=== PATIENT | male | born 1950 ===

== ENCOUNTER 2017-07-14 12:34 | Inpatient (IN) | payer MEDICAID, OTHER ==
[2017-07-14 12:41] VITALS: O2SAT 96
--- NOTE | 2017-07-14 12:58 | ED PDOC ---
Psych Transfer Clearance - Clearance Statement Clearance Statement: Reviewed vital signs, lab results and transfer papers. Patient clinically stable for psychiatric admission.
[2017-07-14] MEDS ORDERED: Bismuth Subsalicylate 262 mg/15 ml Sus (240 ml) PO PRN (13:32)
[2017-07-14] MEDS ORDERED: Magnesium Hydroxide Susp 30 ml UD PO PRN (13:32)
--- NOTE | 2017-07-14 14:02 | PCM.PSYCH ---
Initial Psychiatric Evaluation - Initial Psychiatric Evaluation Type of Admission: Voluntary Legal Status: Capacity Chief Complaint (in patient's own words): HPI: 67 yo male, transferred from [facility] at [place], where he presented after suicide attempt by cutting his R thumb (as per records). Patient reports that he continues to feel depressed. He denies acute SI/plan/intent and is able to contract for safety. He denies acute AH/VH/paranoia/delusions. He does report that he experienced auditory hallucinations several weeks ago. + Anxiety. +Sleep/appetite disturbances. PPHx: Patient denies past psychiatric history, but as per chart he has taken Zoloft in the past and also had an admission to [facility] in the past. He does not want to take Zoloft again because he reports that he had headaches from the medication. PMHx: Denies acute/ chronic medical conditions. ALL: NKDA SHx: Denies drugs/etoh/cig; homeless, from , has 1 daughter (39 yrs old) Current Medications: Active Medications Generic Name Dose Route Start Last Admin Trade Name Freq PRN Reason Stop Dose Admin Acetaminophen 650 mg 07/14/17 13:32 Tylenol 325mg Tab PO Q4 PRN Pain, moderate (4-7) Bismuth Subsalicylate 524 mg 07/14/17 13:32 Pepto-Bismol PO Q4 PRN Diarrhea Escitalopram Oxalate 10 mg 07/14/17 14:00 Lexapro PO DAILY TAMI Lorazepam 0.5 mg 07/14/17 13:32 Ativan PO 07/28/17 13:33 Q6 PRN Anixety/Agitation Lorazepam 1 mg 07/14/17 13:34 Ativan IM Q6 PRN Agitation Magnesium Hydroxide 30 ml 07/14/17 13:32 Milk Of Magnesia PO HS PRN Constipation Past Psychiatric History - Past Psychiatric History Previous Treatment History: Inpatient Pertinent Medical Hx (Current Medical&Sleep Prob, Allergies): Allergies Allergy/AdvReac Type Severity Reaction Status Date / Time No Known Allergies Allergy Verified 07/14/17 12:52 Review of Systems - Psychiatric Psychiatric: As Per HPI, Abnormal Sleep Pattern, Anxiety, Change in Appetite, Depression, Difficulty Concentrating, Irritability, Mood Swings, Suicidal Ideation Mental Status Examination - Personal Presentation Personal Presentation: Looks stated age - Affect Affect: Constricted, Depressed - Motor Activity Motor Activity: Calm - Reliability in Providing Information Reliability in Providing Information: Other (Poor, possibly intentionally not giving information) - Speech Speech: Organized - Mood Mood: Depressed - Formal Thought Process Formal Thought Process: No Impairment - Hallucinations/Delusions Additional comments: No AH/VH/paranoia/delusions - Obsessions/Compulsions Obsessions: No Compulsions: No - Cognitive Functions Orientation: Person, Place, Situation, Time Sensorium: Alert Attention/Concentration: Attentive Estimate of Intelligence: Average Judgement: Intact, as evidence by: Insight regarding need for hospitalization Memory: Recent intact, as evidence by: Ability to recall events of the day - Risk Risk: Suicidal, Diminished functioning - Strength & Assets Inventory Strength & Assets Inventory: Cooperative (Poverty, Homelessness) DSM 5 DX - DSM 5 DSM 5 Diagnosis: Major Depressive Disorder - Recommended/Plan of Treatment Treatment Recommendations and Plan of Treatment: Major Depressive Disorder -Admit to psychiatric unit -Individual and group therapy -Medicine consult -Psychoeducation -Start Lexapro 10 mg PO Daily -Disposition planning -No 1:1 indicated as the patient can contract for safety Projected ELOS: 5-8 days Discharge Plan and Discharge Criteria: Discharge when patient is psychiatrically stable - Smoking Cessation Smoking Cessation Initiated: No Reason for not providing: Not indicated
--- NOTE | 2017-07-14 15:10 | PCM.BM ---
<Marcia Nichols - Last Filed: 07/14/17 15:19> Treatment Plan Problems - Problems identified on initial assessmt Problem 1 Date Initiated: 07/14/17 Time Initiated: 15:18 Assessment reference: NA Status: Active Hopelessness/Hopelessness Date Initiated: 07/14/17 Time Initiated: 15:19 Assessment reference: NA Status: Active Treatment assets and liabiliti Patient Assests: cooperative, educated, ADL independent, negotiates basic needs , cognitively intact Patient Liabilities: live alone, financial problems - Milieu Protocol Maintain good personal hygiene: daily Encourage regular showers, daily Assist patient to perform ADL's, every shift Remind patient to perform daily oral care Conduct patient checks and document Observation sheet: Q15 minutes Maintain personal safety: every shift Educate patient to report safety concerns to staff, every shift Monitor environment for contraband/sharps Medication safety: Monitor for expected outcome, potential side effects: every shift, Assess barriers to learning: every shift, Assess readiness for medication education: every shift Milieu Narrative: Major Depressive Disorder -Admit to psychiatric unit -Individual and group therapy -Medicine consult -Psychoeducation -Start Lexapro 10 mg PO Daily -Disposition planning -No 1:1 indicated as the patient can contract for safety Discharge/Continuing Care - Treatment Team Participation Patient/Family/SO Statement: Major Depressive Disorder -Admit to psychiatric unit -Individual and group therapy -Medicine consult -Psychoeducation -Start Lexapro 10 mg PO Daily -Disposition planning -No 1:1 indicated as the patient can contract for safety <Geeta Lutz - Last Filed: 07/15/17 08:58> - Diagnosis (1) Major depressive disorder Status: Acute Interventions: Medication management, Individual and group therapy, Psychoeducation 07/15/17 08:58 <Ervin Spangler - Last Filed: 07/15/17 16:16> Family Contact Family involvement: Famliy/SO not involved Family contact: Patient agrees to contact, Family has been contacted by patient - Goals for Treatment Patient goals for treatment: Pt reported he would like to obtain housing, and could not identify other goals. Discharge/Continuing Care - Education Needs Education Needs: Patient Medication, Patient Diagnosis/Disease Process, Patient Coping Skills, Patient Placement options, Patient Community resources, Patient Aftercare Safety Plan - Discharge Discharge Criteria: Tolerates medication w/o severe side effects, Free of Suicidal thoughts, Ability to care for self, Reduction of target symptoms Discharge to:: Long Term - Treatment Team Participation Discussed with Family/SO: No <Hillary Gentile - Last Filed: 07/16/17 15:54> Discharge/Continuing Care - Additional Comments 07/16/17 15:49 Pt seen and discussed in team meeting. Reason for admission reviewed and discussed. Pt's progress and bx on the unit reviewed. Pt reported feeling " a little tired." Pt reported poor night sleep due to "worrying about things." Pt reported he is homeless and has been thinking about he will be be staying post discharge. Pt reported feeling restless and command auditory hallucinations telling him to "hurt myself." Pt reported voice is unknown to him. Pt's social and medical issues reviewed. Pt reported he has been in contact with [facility] [employer] [facility] [employer] and they are in te process of getting him a bed at a alf or a emergency motel voucher. Tx plan reviewed and discussed; pt agreeable. SW to continue to follow case. - Treatment Team Participation Was Patient/Family/SO present at Treatment Team Meeting: Yes
--- NOTE | 2017-07-14 19:19 | CP.PCM.CON ---
History of Present Illness - History of Present Illness History of Present Illness: 67 yo male admitted to [facility] because of depression and suicidal ideation. Review of Systems - Review of Systems All systems: reviewed and no additional remarkable complaints except (aside from those mentioned above, 12 point system review were negative by me) Past Patient History - Past Social History Smoking Status: Never Smoked Alcohol: None Drugs: Denies - CARDIAC Hx Cardiac Disorders: No - PULMONARY Hx Respiratory Disorders: No - NEUROLOGICAL Hx Neurological Disorder: No - HEENT Hx HEENT Problems: No - RENAL Hx Chronic Kidney Disease: No - ENDOCRINE/METABOLIC Hx Endocrine Disorders: No - HEMATOLOGICAL/ONCOLOGICAL Hx Blood Disorders: No - INTEGUMENTARY Hx Dermatological Problems: No - MUSCULOSKELETAL/RHEUMATOLOGICAL Hx Musculoskeletal Disorders: No Hx Falls: No - GASTROINTESTINAL Hx Gastrointestinal Disorders: No - GENITOURINARY/GYNECOLOGICAL Hx Genitourinary Disorders: Yes Hx Prostate Problems: Yes Hx Urinary Tract Infection: Yes - PSYCHIATRIC Hx Anxiety: Yes Hx Depression: Yes Hx Substance Use: No - SURGICAL HISTORY Hx Surgeries: No - ANESTHESIA Hx Anesthesia: No Hx Anesthesia Reactions: No Hx Malignant Hyperthermia: No Has any member of the family had a problem w/ anesthesia?: No Meds Allergies/Adverse Reactions: Allergies Allergy/AdvReac Type Severity Reaction Status Date / Time No Known Allergies Allergy Verified 07/14/17 12:52 - Medications Medications: Current Medications Acetaminophen (Tylenol 325mg Tab) 650 mg PO Q4 PRN PRN Reason: Pain, moderate (4-7) Bismuth Subsalicylate (Pepto-Bismol) 524 mg PO Q4 PRN PRN Reason: Diarrhea Escitalopram Oxalate (Lexapro) 10 mg PO DAILY TAMI Last Admin: 07/14/17 17:00 Dose: 10 mg Lorazepam (Ativan) 0.5 mg PO Q6 PRN PRN Reason: Anixety/Agitation Stop: 07/28/17 13:33 Lorazepam (Ativan) 1 mg IM Q6 PRN PRN Reason: Agitation Magnesium Hydroxide (Milk Of Magnesia) 30 ml PO HS PRN PRN Reason: Constipation Physical Exam - Constitutional Appears: No Acute Distress - Head Exam Head Exam: ATRAUMATIC - Eye Exam Eye Exam: absent: Scleral icterus - ENT Exam ENT Exam: Mucous Membranes Moist - Neck Exam Neck exam: Negative for: Meningismus - Respiratory Exam Respiratory Exam: absent: Rhonchi, Wheezes, Respiratory Distress - Cardiovascular Exam Cardiovascular Exam: REGULAR RHYTHM, +S1, +S2 - GI/Abdominal Exam GI & Abdominal Exam: Soft. absent: Tenderness - Rectal Exam Rectal Exam: Deferred - Extremities Exam Extremities exam: Negative for: pedal edema - Back Exam Back exam: NORMAL INSPECTION - Neurological Exam Neurological exam: Alert, Oriented x3 - Psychiatric Exam Psychiatric exam: Normal Affect - Skin Skin Exam: Dry, Intact Results - Vital Signs Recent Vital Signs: Last Vital Signs Temp 97.2 F L 07/14/17 15:42 Pulse 67 07/14/17 15:42 Resp 19 07/14/17 15:42 BP 106/68 07/14/17 15:42 Pulse Ox 96 07/14/17 12:40 Assessment & Plan (1) Suicidal ideation Status: Acute Comment: psyche is managing (2) Depression Status: Acute Comment: psyche is managing
[2017-07-15 06:47] LABS: HEMOGLOBIN 14.2 g/dL (12.0-18.0); MEAN CELL VOLUME 95.9 fl (80.0-94.0); MEAN CORPUSCULAR HEMOGLOBIN 32.4 pg (27.0-31.0); MEAN CORPUSCULAR HGB CONC 33.8 g/dL (33.0-37.0); RBC 4.4 Mil/uL (4.40-5.90); RED CELL DISTRIBUTION WIDTH 13.7 % (11.5-14.5); WHITE BLOOD COUNT 6.3 K/uL (4.8-10.8)
[2017-07-15 06:50] LABS: ALBUMIN 3.5 g/dL (3.5-5.0); ALT/SGPT 51 U/L (21-72); AST/SGOT 24 U/L (17-59); BLOOD UREA NITROGEN 19 mg/dl (9-20); CALCIUM 9.4 mg/dL (8.4-10.2); GFR AFRICAN-AMERICAN > 60; GFR NON-AFRICAN AMERICAN > 60; HDL CHOLESTEROL 32 MG/DL (30-70)
[2017-07-15 07:03] LABS: LDL CHOLESTEROL 117 mg/dL (0-129)
[2017-07-15 07:09] LABS: T4 4.57 ug/dl (5.5-11.0)
--- NOTE | 2017-07-15 09:37 | PCM.PYCHPN ---
Psychiatric Progress Note - Psychiatric Progress Note Patient seen today, length of contact: Patient evaluated, case discussed with team, chart reviewed Patient Chief Complaint: "I'm depressed." Problems Identified/Issues Discussed: Patient continues to report feeling depressed w/ poor sleep. He reports that his appetite is improving. He denies acute ideation to harm self. NO AH/VH/ paranoia/delusions. No adverse effects to Lexapro reported. Medication Change: No Medical Record Reviewed: Yes Consults ordered or reviewed: Medicine consult Mental Status Examination - Cognitive Function Orientation: Person, Place, Situation, Time Memory: Intact Attention: WNL Concentration: WNL Association: WNL Fund of Knowledge: WN - Mood Mood: Depressed - Affect Affect: Constricted, Depressed - Speech Speech: Appropriate - Formal Thought Process Formal Thought Process: No Impairment Psychotic Thoughts and Behaviors: No AH/VH/paranoia/delusions - Suicidal Ideation Suicidal Ideation: No - Homicidal Ideation Homicidal Ideation: No Goal/Treatment Plan - Goal/Treatment Plan Need for Continued Stay: Remain at risks for inpatient hospitalization, Severe depression anxiety, Discharge may exacerbated symptoms Progress Toward Problem(s) and Goals/Treatment Plan: Major Depressive Disorder -Individual and group therapy -Medicine consult -Psychoeducation -Continue Lexapro 10 mg PO Daily -Disposition planning Estimated Date of D/C: 07/18/17
[2017-07-15 12:55] LABS: FOLATE 15.1 ng/mL
--- NOTE | 2017-07-16 09:24 | PCM.PYCHPN ---
Psychiatric Progress Note - Psychiatric Progress Note Patient seen today, length of contact: Patient evaluated, case discussed with team, chart reviewed Patient Chief Complaint: "I'm depressed." Problems Identified/Issues Discussed: Patient continues to report feeling depressed and anxious. He reports that his appetite and appetite are improving. He denies acute ideation to harm self. No AH/VH/paranoia/delusions. No adverse effects to Lexapro reported. Medication Change: No Medical Record Reviewed: Yes Consults ordered or reviewed: Medicine consult Mental Status Examination - Cognitive Function Orientation: Person, Place, Situation, Time Memory: Intact Attention: WNL Concentration: WNL Association: WNL Fund of Knowledge: WNL - Mood Mood: Depressed - Affect Affect: Constricted - Speech Speech: Appropriate - Formal Thought Process Formal Thought Process: No Impairment Psychotic Thoughts and Behaviors: No AH/VH/paranoia/delusions - Suicidal Ideation Suicidal Ideation: No - Homicidal Ideation Homicidal Ideation: No Goal/Treatment Plan - Goal/Treatment Plan Need for Continued Stay: Severe depression anxiety, Discharge may exacerbated symptoms Progress Toward Problem(s) and Goals/Treatment Plan: Major Depressive Disorder -Individual and group therapy -Medicine consult -Psychoeducation -Continue Lexapro 10 mg PO Daily -Disposition planning Estimated Date of D/C: 07/18/17
--- NOTE | 2017-07-17 08:43 | PCM.PYCHPN ---
Psychiatric Progress Note - Psychiatric Progress Note Patient seen today, length of contact: Patient evaluated, case discussed with team, chart reviewed Patient Chief Complaint: "I'm depressed." Problems Identified/Issues Discussed: Patient continues to report feeling depressed and anxious. He denies acute auditory hallucinations. He reports poor sleep last night. He denies acute ideation to harm self. No VH/paranoia/delusions. No adverse effects to Lexapro or Risperdal reported. Medication Change: No Medical Record Reviewed: Yes Consults ordered or reviewed: Medicine consult Mental Status Examination - Cognitive Function Orientation: Person, Place, Situation, Time Memory: Intact Attention: WNL Concentration: WNL Association: WNL Fund of Knowledge: [facility] Decription of patient's judgement and insights: Fair I/J - Mood Mood: Depressed - Affect Affect: Constricted - Speech Speech: Appropriate - Formal Thought Process Formal Thought Process: No Impairment Psychotic Thoughts and Behaviors: No AH/VH/paranoia/delusions - Suicidal Ideation Suicidal Ideation: No - Homicidal Ideation Homicidal Ideation: No Goal/Treatment Plan - Goal/Treatment Plan Need for Continued Stay: Severe depression anxiety, Discharge may exacerbated symptoms Progress Toward Problem(s) and Goals/Treatment Plan: Major Depressive Disorder w/ Psychotic Features -Individual and group therapy -Medicine consult -Psychoeducation -Continue Lexapro 10 mg PO Daily -Continue Risperdal 0.5 mg PO HS -Disposition planning Estimated Date of D/C: 07/21/17
--- NOTE | 2017-07-18 08:46 | PCM.PYCHPN ---
Psychiatric Progress Note - Psychiatric Progress Note Patient seen today, length of contact: Patient evaluated, case discussed with team, chart reviewed Patient Chief Complaint: "I'm depressed." Problems Identified/Issues Discussed: Patient reports that he does not want to take the Risperdal because it made him feel dizzy. He denies any current AH/VH/paranoia/delusions. Patient informed to tell staff if he experience AH in the future. He continues to report depressed mood, but denies suicidal ideation/plan/intent. No adverse effects to Lexapro reported. Medication Change: Yes (Stop Risperdal) Medical Record Reviewed: Yes Consults ordered or reviewed: Medicine consult Mental Status Examination - Cognitive Function Orientation: Person, Place, Situation, Time Memory: Intact Attention: WNL Concentration: WNL Association: WNL Fund of Knowledge: [facility] Decription of patient's judgement and insights: Fair I/J - Mood Mood: Depressed - Affect Affect: Constricted - Speech Speech: Appropriate - Formal Thought Process Formal Thought Process: No Impairment Psychotic Thoughts and Behaviors: No AH/VH/paranoia/delusions - Suicidal Ideation Suicidal Ideation: No - Homicidal Ideation Homicidal Ideation: No Goal/Treatment Plan - Goal/Treatment Plan Need for Continued Stay: Severe depression anxiety, Discharge may exacerbated symptoms Progress Toward Problem(s) and Goals/Treatment Plan: Major Depressive Disorder w/ Psychotic Features -Individual and group therapy -Medicine consult -Psychoeducation -Continue Lexapro 10 mg PO Daily -Step Risperdal 0.5 mg PO HS as per patient request -Disposition planning Estimated Date of D/C: 07/21/17
--- NOTE | 2017-07-19 08:37 | PCM.PYCHPN ---
Psychiatric Progress Note - Psychiatric Progress Note Patient seen today, length of contact: Patient evaluated, case discussed with team, chart reviewed Patient Chief Complaint: "I'm depressed." Problems Identified/Issues Discussed: Patient continues to report depressed mood, but denies suicidal ideation/plan/ intent and hallucinations. He reports improved appetite, but he continues ot have difficultly sleeping at night. No adverse effects to Lexapro reported. Medication Change: No Medical Record Reviewed: Yes Consults ordered or reviewed: Medicine consult Mental Status Examination - Cognitive Function Orientation: Person, Place, Situation, Time Memory: Intact Attention: WNL Concentration: WNL Association: [facility] Fund of Knowledge: [facility] Decription of patient's judgement and insights: Fair I/J - Mood Mood: Depressed - Affect Affect: Constricted - Speech Speech: Appropriate - Formal Thought Process Formal Thought Process: No Impairment Psychotic Thoughts and Behaviors: No AH/VH/paranoia/delusions - Suicidal Ideation Suicidal Ideation: No - Homicidal Ideation Homicidal Ideation: No Goal/Treatment Plan - Goal/Treatment Plan Need for Continued Stay: Severe depression anxiety, Discharge may exacerbated symptoms Progress Toward Problem(s) and Goals/Treatment Plan: Major Depressive Disorder w/ Psychotic Features -Individual and group therapy -Medicine consult -Psychoeducation -Continue Lexapro 10 mg PO Daily -Disposition planning Estimated Date of D/C: 07/21/17
[2017-07-20 06:10] VITALS: RESP 18
--- NOTE | 2017-07-20 11:17 | PCM.PYCHPN ---
Psychiatric Progress Note - Psychiatric Progress Note Patient seen today, length of contact: Patient evaluated, case discussed with team, chart reviewed Patient Chief Complaint: "I'm okay." Problems Identified/Issues Discussed: Patient reports that his mood is improving. He has improved sleep and appetite. No AH/VH/SI/HI/paranoia/delusions. +Improved sleep/appetite. We discussed likely discharge tomorrow. No adverse effects to Lexapro reported. Medication Change: No Medical Record Reviewed: Yes Consults ordered or reviewed: Medicine consult Mental Status Examination - Cognitive Function Orientation: Person, Place, Situation, Time Memory: Intact Attention: WNL Concentration: WNL Association: WN Fund of Knowledge: [facility] Decription of patient's judgement and insights: Fair I/J - Mood Mood: Neutral - Affect Affect: Broad - Speech Speech: Appropriate - Formal Thought Process Formal Thought Process: No Impairment Psychotic Thoughts and Behaviors: No AH/VH/paranoia/delusions - Suicidal Ideation Suicidal Ideation: No - Homicidal Ideation Homicidal Ideation: No Goal/Treatment Plan - Goal/Treatment Plan Need for Continued Stay: Discharge may exacerbated symptoms Progress Toward Problem(s) and Goals/Treatment Plan: Major Depressive Disorder w/ Psychotic Features -Individual and group therapy -Medicine consult -Psychoeducation -Continue Lexapro 10 mg PO Daily -Disposition planning- likely discharge tomorrow Estimated Date of D/C: 07/21/17
[2017-07-21 06:01] VITALS: BP 123/66; PULSE 82; TEMP 97.5
--- NOTE | 2017-07-21 08:45 | PCM.PYCHDC ---
Mental Status Examination - Mental Status Examination Orientation: Person, Place, Situation, Time Memory: Intact Mood: Neutral Affect: Broad Speech: Appropriate Attention: WNL Concentration: WNL Association: WNL Fund of Knowledge: WNL Formal Thought Process: No Impairment Description of patient's judgement and insight: Fair I/J Psychotic Thoughts and Behaviors: No AH/VH/paranoia/delusions Suicidal Ideation: No Current Homicidal Ideation?: No Discharge Summary - Discharge Note Reason for Hospitalization: HPI: 67 yo male, transferred from [facility] [place] at [place], where he presented after suicide attempt by cutting his R thumb (as per records). Patient reports that he continues to feel depressed. He denies acute SI/plan/intent and is able to contract for safety. He denies acute AH/VH/paranoia/delusions. He does report that he experienced auditory hallucinations several weeks ago. + Anxiety. +Sleep/appetite disturbances. PPHx: Patient denies past psychiatric history, but as per chart he has taken Zoloft in the past and also had an admission to [facility] in the past. He does not want to take Zoloft again because he reports that he had headaches from the medication. PMHx: Denies acute/ chronic medical conditions. ALL: NKDA SHx: Denies drugs/etoh/cig; homeless, from , has 1 daughter (39 yrs old) Consultations:: List each consultation separately and include: 1. Reason for request. 2. Findings. 3. Follow-up Consultations: Medicine consult Summary of Hospital Course include:: 1. Description of specific treatment plan utilized for patients during their course of treatmen. 2. Summarize the time- course for resolution of acute symptoms and/or regressed behaviors. 3. Describe issues identified and worked on during hospitalization. 4. Describe medication utilized. 5. Describe medical problems identified and treated. 6. Reassessment of suicide risk Summary of Hospital Course: Patient was admitted to the psychiatry unit. Individual and group therapy were provided. Patient was stabilized on Lexapro 10 mg PO Daily. He denies current depression/anxiety/AH/VH/paranoia/delusions. Psychoeducation provided on the importance of compliance with treatment and medications. He is psychiatrically stable for discharge at this time. - Diagnosis (1) Major depressive disorder Current Visit: Yes Status: Resolved - Final Diagnosis (DSM 5) Condition upon Discharge: STABLE DSM 5: Major Depressive Disorder Disposition: HOME/ ROUTINE Follow-up Treatment Plan: -Continue Lexapro 10 mg PO Daily Prescriptions/Medication Reconciliation: Escitalopram [Lexapro] 10 mg PO DAILY #30 tab - Smoking Cessation Smoking Cessation Medication prescribed: No Reason for not providing: Not indicated - Antipsychotic Medications Pt discharged on 2 or more routine antipsychotic medications: No
== END 2017-07-21 10:45 | disposition home or self-care (01) | DRG 885 ==
LOC: H.ER 12:34 → H.STEP 12:57
PROVIDERS: ADMIT Psychiatry & Neurology Psychiatry; ATTEND Psychiatry & Neurology Psychiatry
PROC: GZHZZZZ Group Psychotherapy (ICD-10-PCS; principal; 2017-07-15)
PROC: GZ51ZZZ Individual Psychotherapy, Behavioral (ICD-10-PCS; 2017-07-15)
DX: F32.3 Major depressive disorder, single episode, severe with psychotic features (principal); R45.851 Suicidal ideations; F41.9 Anxiety disorder, unspecified; Z59.0 Homelessness; Z79.899 Other long term (current) drug therapy; Z87.440 Personal history of urinary (tract) infections